=== PATIENT | female | born 1970 | race Caucasian/White ===

== ENCOUNTER 2018-04-17 07:20 | Outpatient (CLI) | payer OTHER | END 2018-04-17 13:05 | disposition HB | LOC: LAB 07:20 | DX: M12.80 Other specific arthropathies, not elsewhere classified, unspecified site (principal); M46.47 Discitis, unspecified, lumbosacral region; M19.90 Unspecified osteoarthritis, unspecified site; I10 Essential (primary) hypertension; E11.9 Type 2 diabetes mellitus without complications; E03.8 Other specified hypothyroidism; E78.2 Mixed hyperlipidemia ==

== ENCOUNTER 2019-10-21 07:54 | Outpatient (CLI) | payer OTHER | END 2019-10-21 08:03 | disposition home or self-care (01) | LOC: SONOGRAMA 07:54 | PROVIDERS: ATTEND Pathology Anatomic Pathology & Clinical Pathology | DX: E04.1 Nontoxic single thyroid nodule (principal) ==